=== PATIENT | female | born 1990 | race Caucasian/White ===

== ENCOUNTER 2019-06-16 07:12 | Inpatient (IN) | payer BC ==
[2019-06-16] MEDS ORDERED: Sodium Chloride 0.9% 10 ML Syringe FLUSH PRN (08:06)
[2019-06-16] MEDS ORDERED: fentaNYL 100 MCG/2 ML SDV IVPUSH PRN (08:06)
[2019-06-16] MEDS ORDERED: Misoprostol 50 MCG (1/2 of 100 MCG) Tab VAG ONE (08:15)
[2019-06-16] MEDS ORDERED: Misoprostol 50 MCG (1/2 of 100 MCG) Tab ONE (08:16)
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
--- NOTE | 2019-06-16 08:51 | US ---
BPP wo NST INDICATION: induction COMPARISON: None FINDINGS: Single live IUP in: Cephalic position. heart rate: 139 BPM. Biophysical profile score: 8/8. MICHELLE: 12.0 cm. IMPRESSION: Normal biophysical profile score of 8/8.
--- NOTE | 2019-06-16 12:54 | PCM.PNLD ---
Labor Progress Note - VS & Meds Vital Signs: Last Vital Signs Temp 96.7 F 06/16/19 10:24 Pulse 82 06/16/19 10:24 Resp 18 06/16/19 10:24 BP 133/94 H 06/16/19 10:24 Pulse Ox 98 06/16/19 10:24 Active Medications: Current Medications Fentanyl (Sublimaze) 100 mcg IVPUSH Q1H PRN PRN Reason: Pain (moderate 4-6) Oxytocin/Sodium Chloride (Pitocin In Ns 20 Units/1,000 Ml) 20 unit in 1,000 mls @ 999 mls/hr IV ONETIME ONE; Protocol Stop: 06/16/19 13:30 Sodium Chloride (Saline Flush) 10 ml FLUSH ASDIRECTED PRN PRN Reason: Keep Vein Open Discontinued Medications Misoprostol (Cytotec) 50 mcg VAG ONETIME ONE Stop: 06/16/19 08:16 Last Admin: 06/16/19 08:19 Dose: 50 mcg Misoprostol (Cytotec) Confirm Administered Dose 50 mcg .ROUTE .STK-MED ONE Stop: 06/16/19 08:17 Last Admin: 06/16/19 10:01 Dose: Not Given - Uterine Contractions Uterine Monitoring Mode: External [place] Contraction Frequency (min): 5-7 Contraction Duration (sec): 30-80 Contraction Intensity: Mild Uterine Resting Tone: Soft - Monitoring Monitor Mode: Doppler/Auscultation Heart Rate (FHR) Baseline: 150 Heart Rate (FHR) Variability: Moderate (6-25 bmp) Accelerations: Present, 15x15 Decelerations: None Strip Review: Category I - Vaginal Exam Dilation (cm): 5-6 Effacement (Percent): 80 Station: 1 Cervical Position: Posterior Sterile Vaginal Exam Performed By: Sobeida Abdi Vaginal Exam Comment: nice progress, AROM clear - Labor Progress (Free Text) Labor Progress: 06/16/19 Active labor, doing well In tub and wants nitrous for pain management Cat one strip Plan Plan for vaginal delivery
[2019-06-16] MEDS ORDERED: Ibuprofen 200 MG Tab, 24 Tab Bulk Bottle PO PRN (13:55)
[2019-06-16] MEDS ORDERED: Hydrocortisone 2.5% Crm 30 GM Tube TOP ONE (13:55)
[2019-06-16] MEDS ORDERED: Witch Hazel Medicated Pads 100/Jar TOP ONE (13:55)
[2019-06-16] MEDS ORDERED: Benzocaine 20% Top Spray 56 GM Bottle TOP ONE (13:55)
[2019-06-16] MEDS ORDERED: Acetaminophen 325 MG Tab, 50 Tab Bulk Bottle PO PRN (13:55)
[2019-06-16] MEDS ORDERED: Benzocaine 20% Top Spray 56 GM Bottle TOP PRN (13:55)
[2019-06-16] MEDS ORDERED: Lanolin 100% Cream 40 GM Tube TOP ONE (13:55)
[2019-06-16] MEDS ORDERED: Hydrocortisone 2.5% Crm 30 GM Tube TOP PRN ×2 (13:55→14:03)
[2019-06-16] MEDS ORDERED: Witch Hazel Medicated Pads 100/Jar TOP PRN (13:55)
[2019-06-16] MEDS ORDERED: Lanolin 100% Cream 40 GM Tube TOP PRN (13:55)
--- NOTE | 2019-06-16 14:07 | PCM.DEL ---
L & D Note - General Info Date of Service: 06/16/19 (childbirth) Mother's Due Date: 06/23/19 - Delivery Note Labor: Spontaneous Cervical Ripening Method: Misoprostil Delivery Outcome: Livebirth Delivery Method: Spontaneous Vaginal Delivery-Single Infant Delivery Mode: Spontaneous Presentation: Left Occiput Anterior (JACKLYN) Nuchal Cord: None Anesthesia Type: Nitrous Oxide Amniotic Fluid Description: Clear Episiotomy Type: None Laceration: None Placenta: Intact, Spontaneous Cord: 3 Vessels Estimated Blood Loss: 100 Resuscitation Needed: No : Suctioned, Stimulated, Warmed, [place] Used Provider: Sobeida Abdi Score 1 min: 8 Score 5 min: 9 Second Stage Interventions: Reports: Second Nurse Reviewed Heart Tones, Encouragement Given, Pushing Effectively, Pushing, McRobert's Position Delivery Comments (Free Text/Narrative):: 06/16/19 This 29 year old G3 now P3 who is 39 weeks delivered via in JACKLYN over and intact perineum at 1328 at viable male . Mother made quick progress from 6 cm to complete and pushing. The was placed on mother's abdomen where he was dried and stimulated. He cried spontaneously and had Apgars of 8-9 all for color. Delayed cord clamping and active management of the third stage were used. Three vessel cord. The placenta was expressed spontaneously intact, leon. No lacerations were found of the cervix, rectum, vagina or perineum. EBL 100cc Mother and to post in stable condition. Baby to breast within 30 minutes of . First stage 2285-4366 Second stage 3041-0884 Third stage 4187-6283 Induction Criteria - South Score South Score Dilation: 3-4 cm South Score Effacement: 60-70% South Score Infant's Station: -1 ,0 South Score Consistency: Soft South Score Cervix Position: Posterior South Score Total: 8 South Score Presenting Part: Reports: Cephalic - Induction Gestational Age >/= 39 wks: Yes Estimated Pelvis: Reports: Adequate Reassuring Monitoring Strip: Yes Absence of Tachy Systole: Yes - General Info Date of Service: 06/16/19 Admission Dx/Problem (Free Text): Patient Status Order with Admit Dx/Problem 06/16/19 08:06 Patient Status [ADT] Routine Admission Diagnosis/Problem Admission Diagnosis/Problem Gestational hypertension Functional Status: Reports: Pain Controlled - Review of Systems General: Reports: No Symptoms HEENT: Reports: No Symptoms Pulmonary: Reports: No Symptoms Cardiovascular: Reports: No Symptoms Gastrointestinal: Reports: No Symptoms Genitourinary: Reports: No Symptoms Musculoskeletal: Reports: No Symptoms Skin: Reports: No Symptoms Neurological: Reports: No Symptoms Psychiatric: Reports: No Symptoms - Patient Data Vitals - Most Recent: Last Vital Signs Temp 96.7 F 06/16/19 10:24 Pulse 82 06/16/19 10:24 Resp 18 06/16/19 10:24 BP 133/94 H 06/16/19 10:24 Pulse Ox 98 06/16/19 10:24 Weight - Most Recent: 178 lb Lab Results Last 24 Hours: Laboratory Results - last 24 hr 06/16/19 06/16/19 06/16/19 Range/Units 07:30 07:30 07:50 WBC 10.6 (4.5-11.0) K/uL RBC 4.10 (3.30-5.50) M/uL Hgb 11.9 L (12.0-15.0) g/dL Hct 36.8 (36.0-48.0) % MCV 90 (80-98) fL MCH 29 (27-31) pg MCHC 32 (32-36) % Plt Count 118 L (150-400) K/uL Neut % (Auto) 73 H (36-66) % Lymph % (Auto) 17 L (24-44) % [place] % (Auto) 9 H (2-6) % Eos % (Auto) 1 L (2-4) % Baso % (Auto) 0 (0-1) % Sodium (140-148) mmol/L Potassium (3.6-5.2) mmol/L Chloride (100-108) mmol/L Carbon Dioxide (21-32) mmol/L Anion Gap (5.0-14.0) mmol/L BUN (7-18) mg/dL Creatinine (0.6-1.0) mg/dL Est Cr Clr Drug Dosing Estimated GFR (MDRD) (>60) Glucose (74-106) mg/dL Calcium (8.5-10.1) mg/dL Total Bilirubin (0.2-1.0) mg/dL AST (15-37) U/L ALT (12-78) U/L Alkaline Phosphatase (46-116) U/L Total Protein (6.4-8.2) g/dL Albumin (3.4-5.0) g/dL Globulin (2.3-3.5) g/dL Albumin/Globulin Ratio (1.2-2.2) Urine Color Yellow (YELLOW) Urine Appearance Slightly cloudy A (CLEAR) Urine pH 7.0 (5.0-8.0) Ur Specific [place] 1.015 (1.008-1.030) Urine Protein Negative (NEGATIVE) mg/dL Urine Glucose (UA) Negative (NEGATIVE) mg/dL Urine Ketones Negative (NEGATIVE) mg/dL Urine Occult Blood Small H (NEGATIVE) Urine Nitrite Negative (NEGATIVE) Urine Bilirubin Negative (NEGATIVE) Urine Urobilinogen 0.2 (0.2-1.0) EU/dL Ur Leukocyte Esterase Trace H (NEGATIVE) Urine RBC 0-5 (0-5) Urine WBC 0-5 (0-5) Ur Epithelial Cells Many Amorphous Sediment Not seen Urine Bacteria Few Urine Mucus Not seen Urine Opiates Screen Negative (NEGATIVE) Ur Oxycodone Screen Negative (NEGATIVE) Urine Methadone Screen Negative (NEGATIVE) Ur Propoxyphene Screen Negative (NEGATIVE) Ur Barbiturates Screen Negative (NEGATIVE) Ur Tricyclics Screen Negative (NEGATIVE) Ur Phencyclidine Scrn Negative (NEGATIVE) Ur Amphetamine Screen Negative (NEGATIVE) U Methamphetamines Scrn Negative (NEGATIVE) Urine MDMA Screen Negative (NEGATIVE) U Benzodiazepines Scrn Negative (NEGATIVE) U Cocaine Metab Screen Negative (NEGATIVE) U Marijuana (THC) Screen Negative (NEGATIVE) 06/16/19 Range/Units 07:50 WBC (4.5-11.0) K/uL RBC (3.30-5.50) M/uL Hgb (12.0-15.0) g/dL Hct (36.0-48.0) % MCV (80-98) fL MCH (27-31) pg MCHC (32-36) % Plt Count (150-400) K/uL Neut % (Auto) (36-66) % Lymph % (Auto) (24-44) % [place] % (Auto) (2-6) % Eos % (Auto) (2-4) % Baso % (Auto) (0-1) % Sodium 138 L (140-148) mmol/L Potassium 3.6 (3.6-5.2) mmol/L Chloride 103 (100-108) mmol/L Carbon Dioxide 23 (21-32) mmol/L Anion Gap 15.6 H (5.0-14.0) mmol/L BUN 9 (7-18) mg/dL Creatinine 0.7 (0.6-1.0) mg/dL Est Cr Clr Drug Dosing TNP Estimated GFR (MDRD) > 60 (>60) Glucose 103 (74-106) mg/dL Calcium 8.6 (8.5-10.1) mg/dL Total Bilirubin 0.2 (0.2-1.0) mg/dL AST 13 L (15-37) U/L ALT 15 (12-78) U/L Alkaline Phosphatase 194 H (46-116) U/L Total Protein 6.4 (6.4-8.2) g/dL Albumin 2.5 L (3.4-5.0) g/dL Globulin 3.9 H (2.3-3.5) g/dL Albumin/Globulin Ratio 0.6 L (1.2-2.2) Urine Color (YELLOW) Urine Appearance (CLEAR) Urine pH (5.0-8.0) Ur Specific [place] (1.008-1.030) Urine Protein (NEGATIVE) mg/dL Urine Glucose (UA) (NEGATIVE) mg/dL Urine Ketones (NEGATIVE) mg/dL Urine Occult Blood (NEGATIVE) Urine Nitrite (NEGATIVE) Urine Bilirubin (NEGATIVE) Urine Urobilinogen (0.2-1.0) EU/dL Ur Leukocyte Esterase (NEGATIVE) Urine RBC (0-5) Urine WBC (0-5) Ur Epithelial Cells Amorphous Sediment Urine Bacteria Urine Mucus Urine Opiates Screen (NEGATIVE) Ur Oxycodone Screen (NEGATIVE) Urine Methadone Screen (NEGATIVE) Ur Propoxyphene Screen (NEGATIVE) Ur Barbiturates Screen (NEGATIVE) Ur Tricyclics Screen (NEGATIVE) Ur Phencyclidine Scrn (NEGATIVE) Ur Amphetamine Screen (NEGATIVE) U Methamphetamines Scrn (NEGATIVE) Urine MDMA Screen (NEGATIVE) U Benzodiazepines Scrn (NEGATIVE) U Cocaine Metab Screen (NEGATIVE) U Marijuana (THC) Screen (NEGATIVE) Med Orders - Current: Current Medications Acetaminophen (Tylenol Bulk Bottle) 325 - 650 mg PO Q4H PRN PRN Reason: Pain Benzocaine (Dzaf-Q-Afrdass 20% [place]) 0 gm TOP Q4H PRN PRN Reason: Other Emollient Ointment (Lansinoh Hpa) 0 gm TOP ASDIRECTED PRN PRN Reason: Other Fentanyl (Sublimaze) 100 mcg IVPUSH Q1H PRN PRN Reason: Pain (moderate 4-6) Hydrocortisone (Proctozone-Hc 2.5% Crm) 1 gm TOP ONETIME ONE Stop: 06/16/19 13:56 Hydrocortisone (Hydrocortisone 2.5% Crm) 0 gm TOP ASDIRECTED PRN PRN Reason: Other Ibuprofen (Motrin Bulk Bottle) 600 mg PO Q6H PRN PRN Reason: Pain Sodium Chloride (Saline Flush) 10 ml FLUSH ASDIRECTED PRN PRN Reason: Keep Vein Open Witch Teressa (Tucks) 1 pad TOP ASDIRECTED PRN PRN Reason: Other Discontinued Medications Benzocaine (Ocie-C-Cudamjg 20% [place]) 0 gm TOP ONETIME ONE Stop: 06/16/19 13:56 Emollient Ointment (Lansinoh Hpa) 0 gm TOP ONETIME ONE Stop: 06/16/19 13:56 Oxytocin/Sodium Chloride (Pitocin In Ns 20 Units/1,000 Ml) 20 unit in 1,000 mls @ 999 mls/hr IV ONETIME ONE; Protocol Stop: 06/16/19 13:30 Misoprostol (Cytotec) 50 mcg VAG ONETIME ONE Stop: 06/16/19 08:16 Last Admin: 06/16/19 08:19 Dose: 50 mcg Misoprostol (Cytotec) Confirm Administered Dose 50 mcg .ROUTE .STK-MED ONE Stop: 06/16/19 08:17 Last Admin: 06/16/19 10:01 Dose: Not Given Witch Teressa (Tucks) 1 pad TOP ONETIME ONE Stop: 06/16/19 13:56 - Exam General: Alert, Oriented HEENT: Pupils Equal Neck: Supple Lungs: Clear to Auscultation Cardiovascular: Regular Rate GI/Abdominal Exam: Soft (Female) Exam: Normal External Exam, Cervical Dilatation, Enlarged Uterus, Vaginal Bleeding Back Exam: Normal Inspection Extremities: Normal Inspection, Pedal Edema Skin: Warm Neurological: No New Focal Deficit Psy/Mental Status: Alert, Normal Affect, Normal Mood - Problem List & Annotations (1) Elective induction of labor planned SNOMED Code(s): 141651383 Code(s): JAI8422 - Status: Acute Current Visit: Yes (2) Gestational hypertension SNOMED Code(s): 476176504 Code(s): O13.9 - GESTATIONAL HTN W/O SIGNIFICANT PROTEINURIA, UNSP TRIMESTER Status: Acute Current Visit: Yes Qualifiers: Trimester: third trimester Qualified Code(s): O13.3 - Gestational [ -induced] hypertension without significant proteinuria, third trimester (3) SNOMED Code(s): 57054087 Code(s): Z34.90 - ENCNTR FOR SUPRVSN OF NORMAL , UNSP, UNSP TRIMESTER Status: Acute Current Visit: Yes Qualifiers: Weeks of gestation: 39 weeks Qualified Code(s): Z3A.39 - 39 weeks gestation of (4) Normal labor SNOMED Code(s): 03773636 Code(s): O80 - ENCOUNTER FOR FULL-TERM UNCOMPLICATED DELIVERY; Z37.9 - OUTCOME OF DELIVERY, UNSPECIFIED Status: Acute Current Visit: No (5) Vaginal delivery SNOMED Code(s): 447974685 Code(s): O80 - ENCOUNTER FOR FULL-TERM UNCOMPLICATED DELIVERY Status: Acute Current Visit: Yes - Problem List Review Problem List Initiated/Reviewed/Updated: Yes - My Orders Last 24 Hours: My Active Orders 06/16/19 08:06 Bedrest Bathroom Privileges [RC] ASDIRECTED Communication Order [RC] ASDIRECTED Heart Tones [RC] PER UNIT ROUTINE Non Stress Test [RC] Click to Edit Notify Provider Vital Signs [RC] PRN Notify Provider [RC] PRN Up ad Corinne [RC] ASDIRECTED Vital Signs [RC] PER UNIT ROUTINE Sodium Chloride 0.9% [Saline Flush] 10 ml FLUSH ASDIRECTED PRN fentaNYL [Sublimaze] 100 mcg IVPUSH Q1H PRN DVT/VTE Prophylaxis Reflex [OM.PC] Routine Saline Lock Insert [OM.PC] Routine Resuscitation Status Routine 06/16/19 08:09 Antiembolic Devices [RC] .Routine VTE/DVT Education [RC] Click to Edit 06/16/19 12:55 Communication Order [RC] Per Unit Routine Communication Order [RC] Per Unit Routine Communication Order [RC] Per Unit Routine Nitrous Oxide Delivery [RC] ASDIRECTED Oxygen Therapy [RC] ASDIRECTED Pulse Oximetry [RC] ASDIRECTED Verify Patient Consent Obtain [RC] ASDIRECTED Vital Signs [RC] PER UNIT ROUTINE 06/16/19 13:55 Acetaminophen [Tylenol Bulk Bottle] 325 - 650 mg PO Q4H PRN Benzocaine [Shmc-Z-Bvasdnv 20% [place]] 0 gm TOP Q4H PRN Hydrocortisone [Hydrocortisone 2.5% Crm] 0 gm TOP ASDIRECTED PRN Hydrocortisone [Proctozone-HC 2.5% Crm] 1 gm TOP ONETIME ONE Ibuprofen [Motrin Bulk Bottle] 600 mg PO Q6H PRN Lanolin [Lansinoh HPA] 0 gm TOP ASDIRECTED PRN Witch Teressa [Tucks] 1 pad TOP ASDIRECTED PRN Assess Lochia [WOMSER] Per Unit Routine Assess Uterine Involution [WOMSER] Per Unit Routine 06/16/19 13:56 Patient Status [ADT] Routine Vital Signs [RC] PFP 06/16/19 13:57 Sitz Bath [OM.PC] Per Unit Routine 06/16/19 Dinner Regular Diet [DIET] 06/16/19 Lunch Clear Liquid Diet [DIET] 06/17/19 05:11 CBC WITH AUTO DIFF [HEME] AM - Assessment Assessment:: 06/16/19 29 year old 39 week without complications infant - Plan Plan:: 06/16/19 29 yr old who is 39 week with gestational hypertension. Induction for gestational hypertension BPP 8/8, reactive NST Plan: Miso 50 mcg vaginally monitor for active labor plan for vaginal delivery 06/16/19 routine cares support 24-48 hour stay
[2019-06-16] MEDS ORDERED: Docusate Sodium 100 MG Cap PO PRN (21:09)
[2019-06-17 08:10] VITALS: PULSE 82
--- NOTE | 2019-06-17 08:22 | PCM.PNPP ---
- General Info Date of Service: 06/17/19 Functional Status: Reports: Pain Controlled - Review of Systems General: Reports: No Symptoms HEENT: Reports: No Symptoms Pulmonary: Reports: No Symptoms Cardiovascular: Reports: No Symptoms Gastrointestinal: Reports: No Symptoms Genitourinary: Reports: No Symptoms Musculoskeletal: Reports: No Symptoms Skin: Reports: No Symptoms Neurological: Reports: No Symptoms Psychiatric: Reports: No Symptoms - General Info Date of Service: 06/17/19 - Patient Data Vital Signs - Most Recent: Last Vital Signs Temp 35.3 C 06/17/19 08:08 Pulse 82 06/17/19 08:08 Resp 18 06/17/19 08:08 BP 138/96 H 06/17/19 08:08 Pulse Ox 98 06/17/19 08:08 Weight - Most Recent: 80.739 kg I&O - Last 24 Hours: Intake & Output 06/16/19 06/17/19 06/17/19 22:59 06:59 14:59 Intake Total 2200 500 Balance 2200 500 Lab Results - Last 24 Hours: Laboratory Results - last 24 hr 06/17/19 Range/Units 05:40 WBC 11.3 H (4.5-11.0) K/uL RBC 3.19 L (3.30-5.50) M/uL Hgb 9.4 L D (12.0-15.0) g/dL Hct 28.8 L (36.0-48.0) % MCV 90 (80-98) fL MCH 30 (27-31) pg MCHC 33 (32-36) % Plt Count 99 L (150-400) K/uL Neut % (Auto) 66 (36-66) % Lymph % (Auto) 22 L (24-44) % Lake % (Auto) 11 H (2-6) % Eos % (Auto) 1 L (2-4) % Baso % (Auto) 0 (0-1) % Med Orders - Current: Current Medications Acetaminophen (Tylenol Bulk Bottle) 325 - 650 mg PO Q4H PRN PRN Reason: Pain Last Admin: 06/16/19 15:43 Dose: 650 mg Benzocaine (Wzof-R-Fcfpkfy 20% Monarch) 0 gm TOP Q4H PRN PRN Reason: Other Docusate Sodium (Colace) 100 mg PO DAILY PRN PRN Reason: Constipation Last Admin: 06/16/19 21:24 Dose: 100 mg Emollient Ointment (Lansinoh Hpa) 0 gm TOP ASDIRECTED PRN PRN Reason: Other Fentanyl (Sublimaze) 100 mcg IVPUSH Q1H PRN PRN Reason: Pain (moderate 4-6) Hydrocortisone (Proctozone-Hc 2.5% Crm) 0 gm TOP ASDIRECTED PRN PRN Reason: Other Ibuprofen (Motrin Bulk Bottle) 600 mg PO Q6H PRN PRN Reason: Pain Last Admin: 06/16/19 14:22 Dose: 600 mg Sodium Chloride (Saline Flush) 10 ml FLUSH ASDIRECTED PRN PRN Reason: Keep Vein Open Witgarry Teressa (Juan Pablos) 1 pad TOP ASDIRECTED PRN PRN Reason: Other Discontinued Medications Benzocaine (Bdql-H-Gvrhjef 20% Monarch) 0 gm TOP ONETIME ONE Stop: 06/16/19 13:56 Last Admin: 06/16/19 16:18 Dose: 1 spray Emollient Ointment (Lansinoh Hpa) 0 gm TOP ONETIME ONE Stop: 06/16/19 13:56 Last Admin: 06/16/19 16:56 Dose: Not Given Hydrocortisone (Proctozone-Hc 2.5% Crm) 0 gm TOP ONETIME ONE Stop: 06/16/19 13:56 Last Admin: 06/16/19 16:56 Dose: Not Given Hydrocortisone (Hydrocortisone 2.5% Crm) 0 gm TOP ASDIRECTED PRN PRN Reason: Other Oxytocin/Sodium Chloride (Pitocin In Ns 20 Units/1,000 Ml) 20 unit in 1,000 mls @ 999 mls/hr IV ONETIME ONE; Protocol Stop: 06/16/19 13:30 Last Admin: 06/16/19 14:29 Dose: 999 ml/hr, 999 mls/hr Misoprostol (Cytotec) 50 mcg VAG ONETIME ONE Stop: 06/16/19 08:16 Last Admin: 06/16/19 08:19 Dose: 50 mcg Misoprostol (Cytotec) Confirm Administered Dose 50 mcg .ROUTE .STK-MED ONE Stop: 06/16/19 08:17 Last Admin: 06/16/19 10:01 Dose: Not Given Witch Teressa (Tucks) 1 pad TOP ONETIME ONE Stop: 06/16/19 13:56 Last Admin: 06/16/19 16:18 Dose: 1 pad - Infant Interaction Disposition, : in Room with Family Interaction: Holding Infant Feeding: Breastfed Infant; Nursed Well Support Person: - Recovery Exam Fundal Tone: Firm Fundal Level: 2 Fingerbreadths Below Umbilicus Fundal Placement: Midline Lochia Amount: Moderate, Clots/Tissue Present Lochia Color: Rubra/Red Perineum Description: Intact, Minimal Bruising/Swelling, Redness Episiotomy/Laceration: None Bladder Status: Nonpalpable, Voiding Urinary Elimination: Voided - Exam General: Alert, Oriented HEENT: Pupils Equal Neck: Supple Lungs: Clear to Auscultation, Normal Respiratory Effort Cardiovascular: Regular Rate, Regular Rhythm GI/Abdominal Exam: Normal Bowel Sounds, Soft, Non-Tender, No Organomegaly, No Distention, No Abnormal Bruit, No Mass, Pelvis Stable Extremities: Normal Inspection, Normal Range of Motion, Non-Tender, No Pedal Edema, Normal Capillary Refill Skin: Warm, Dry, Intact Neurological: No New Focal Deficit Psy/Mental Status: Alert, Normal Affect, Normal Mood - Problem List & Annotations (1) Elective induction of labor planned SNOMED Code(s): 810482034 Code(s): MNM2237 - Status: Acute Current Visit: Yes (2) Gestational hypertension SNOMED Code(s): 678646943 Code(s): O13.9 - GESTATIONAL HTN W/O SIGNIFICANT PROTEINURIA, UNSP TRIMESTER Status: Acute Current Visit: Yes Qualifiers: Trimester: third trimester Qualified Code(s): O13.3 - Gestational [ -induced] hypertension without significant proteinuria, third trimester (3) SNOMED Code(s): 97560281 Code(s): Z34.90 - ENCNTR FOR SUPRVSN OF NORMAL , UNSP, UNSP TRIMESTER Status: Acute Current Visit: Yes Qualifiers: Weeks of gestation: 39 weeks Qualified Code(s): Z3A.39 - 39 weeks gestation of (4) Vaginal delivery SNOMED Code(s): 023221857 Code(s): O80 - ENCOUNTER FOR FULL-TERM UNCOMPLICATED DELIVERY Status: Acute Current Visit: Yes - Problem List Review Problem List Initiated/Reviewed/Updated: Yes - Assessment Assessment:: 06/16/19 29 year old 39 week without complications 06/17/19 Day 1 pp no compilations BP 138/96 this am Hgb 9.4, asymptomatic, did have clots last night but FF and bleeding light this am going very well Pain controlled - Plan Plan:: 06/16/19 29 yr old who is 39 week with gestational hypertension. Induction for gestational hypertension BPP 8/8, reactive NST Plan: Miso 50 mcg vaginally monitor for active labor plan for vaginal delivery 06/16/19 routine cares support 24-48 hour stay Routine pp cares, support BP check at baby weight check end of this week 6 week pp check with Sobeida Discharge home today after 24 hours
[2019-06-17 11:05] VITALS: BP 152/86
== END 2019-06-17 14:20 | disposition home or self-care (01) | DRG 560 ==
LOC: JP.OB 07:12 → OBSVTOIN 13:28 → JP.OB 13:28 → JP.MS 14:12
PROVIDERS: ADMIT Nurse Practitioner Family; ATTEND Nurse Practitioner Family
PROC: 10E0XZZ Delivery of Products of Conception, External Approach (ICD-10-PCS; principal; 2019-06-16)
PROC: 10907ZC Drainage of Amniotic Fluid, Therapeutic from Products of Conception, Via Natural or Artificial Opening (ICD-10-PCS; 2019-06-16)
PROC: 3E0P7VZ Introduction of Hormone into Female Reproductive, Via Natural or Artificial Opening (ICD-10-PCS; 2019-06-16)
DX: O13.4 Gestational [pregnancy-induced] hypertension without significant proteinuria, complicating childbirth (principal); Z3A.39 39 weeks gestation of pregnancy; Z37.0 Single live birth
CPT/HCPCS: 36415; 59409; 59414; 76819; 76819-26; 80053; 80305-QW; 81001; 85025; 99211; A9270-GY; J2590